=== PATIENT | female | born 1980 | race Caucasian/White ===

== ENCOUNTER 2017-12-17 13:26 | Emergency (ER) | payer OTHER ==
[2017-12-17] MEDS ORDERED: FLUORESCEIN SODIUM 0.6 MG/WRAP ONE (13:42)
[2017-12-17] MEDS ORDERED: TETRACAINE HCL 0.5% 2ML OPTH ONE (13:44)
[2017-12-17] MEDS ORDERED: TETANUS & DIPHTHERIA TOX,ADULT 0.5 ML VIAL ONE (13:45)
--- NOTE | 2017-12-17 13:53 | ER ---
Nurse's Notes [facility] Name: Zoe Marvin Age: 37 yrs Sex: Female : 1980 Arrival Date: 12/17/2017 Time: 13:32 Bed 23 Private MD: out of town, doctor Diagnosis: Injury of conjunctiva and corneal abrasion without foreign body, left eye Presentation: 12/17 13:34 Presenting complaint: Patient states: Left eye pain and burning since last night. hb Denies injury. Transition of care: patient was not received from another setting of care. Onset of symptoms was December 16, 2017. Risk Assessment: Do you want to hurt yourself or someone else? Patient reports no desire to harm self or others. Care prior to arrival: None. 13:34 Method Of Arrival: Ambulatory hb 13:34 Acuity: CASSIUS 4 hb 15:00 Initial Sepsis Screen: Does the patient meet any 2 criteria? No. Patient's initial tl3 sepsis screen is negative. Does the patient have a suspected source of infection? No. Patient's initial sepsis screen is negative. 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 - Social history:: Smoking status: Patient/guardian denies using tobacco. - Ebola Screening: : No symptoms or risks identified at this time. Screenin:51 Abuse screen: Denies threats or abuse. Nutritional screening: No deficits noted. tl3 Tuberculosis screening: No symptoms or risk factors identified. Fall Risk None identified. Assessment: 13:51 General: Appears uncomfortable, well groomed, well developed, well nourished, Behavior tl3 is calm, cooperative, appropriate for age. Pain: Complains of pain in left eye. Neuro: Level of Consciousness is awake, alert, obeys commands, Oriented to person, place, time, situation, Appropriate for age. Cardiovascular: No deficits noted. Patient's skin is warm and dry. Respiratory: Airway is patent Respiratory effort is even, unlabored, Respiratory pattern is regular, symmetrical. GI: No deficits noted. No signs and/or symptoms were reported involving the gastrointestinal system. : No deficits noted. No signs and/or symptoms were reported regarding the genitourinary system. 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 Derm: No deficits noted. No signs and/or symptoms reported regarding the dermatologic system. Musculoskeletal: No deficits noted. No signs and/or symptoms reported regarding the musculoskeletal system. Vital Signs: 13:34 BP 139 / 92; Pulse 104; Resp 16; Temp 98.2; Pulse Ox 100% on R/A; Weight 77.11 kg; hb Height 5 ft. 8 in. (172.72 cm); Pain 5/10; 14:25 BP 122 / 80; Pulse 94; Resp 18; Pulse Ox 100% ; tl3 13:34 Body Mass Index 25.85 (77.11 kg, 172.72 cm) hb Visual Acuity: 14:20 Left Eye Visual acuity 20/70, ; Right Eye Visual acuity 20/15, ; Both Eyes Visual tl3 acuity 20/15; With Lenses; ED Course: 13:32 Patient arrived in ED. mr 13:32 out of town, doctor is Private Physician. mr 13:34 Triage completed. hb 13:34 David Bowers, BLAISE is PHCP. pm1 13:34 Lance Long MD is Attending Physician. pm1 13:35 Arm band placed on right wrist. hb 13:36 Mary Alice Yusuf, MASHA is Primary Nurse. tl3 13:51 Patient has correct armband on for positive identification. Bed in low position. Call tl3 light in reach. Side rails up X 1. Adult w/ patient. 13:51 Assist provider with eye exam of left eye. using fluorescein stain, Performed by tl3 David Bowers NP Patient tolerated well. 15:00 Patient did not have IV access during this emergency room visit. tl3 Administered Medications: 13:54 Drug: Tetracaine Drops 0.5 % 1 drops Route: Ophthalmic; Site: left eye; tl3 14:04 Follow up: Response: No adverse reaction tl3 13:55 Drug: Tetanus-Diphtheria Toxoid Adult 0.5 ml {Ingredient Scaler: [employer] MD ([employer]). Exp: tl3 03/08/2020. Lot #: [id number]. } Route: IM; Site: right deltoid; 13:56 Follow up: Response: No adverse reaction tl3 13:58 Not Given (Physician Discretion; Preference for tobramycin): Gentamicin Drops 0.3 % 2 pm1 drops Ophthalmic once 14:04 Drug: Tylenol #3 (300 mg-30 mg) 1 tablet Route: PO; tl3 14:14 Follow up: Response: No adverse reaction; Medication administered at discharge. tl3 14:10 Not Given (Physician Discretion; Not available): Tobramycin Drops (0.3 %) 2 drops pm1 Ophthalmic once 14:12 Drug: Gentamicin Drops 0.3 % 2 drops Route: Ophthalmic; Site: left eye; tl3 14:14 Follow up: Response: Medication administered at discharge. tl3 Outcome: 13:52 Discharge ordered by MD. pm1 14:59 Discharged to home ambulatory. tl3 14:59 Condition: good 14:59 Discharge instructions given to patient, family, Instructed on discharge instructions, follow up and referral plans. medication usage, Demonstrated understanding of instructions, follow-up care, medications, Prescriptions given X 2. 15:01 Patient left the ED. tl3 Signatures: Yanely Steele ElissaDavid, SENIOR COLDFUSION DEVELOPER SENIOR COLDFUSION DEVELOPER pm1 Marilee Salazar, RN RN Mary Alice Yusuf RN RN tl3
--- NOTE | 2017-12-17 13:53 | EDPHYS ---
Physician Documentation [facility] Name: Zoe Marvin Age: 37 yrs Sex: Female : 1980 Arrival Date: 12/17/2017 Time: 13:32 Bed 23 Private MD: out of town, doctor ED Physician Lance Long HPI: 12/17 13:50 This 37 yrs old Female presents to ER via Ambulatory with complaints of Left pm1 Eye Pain. 13:50 The patient is experiencing foreign body sensation, pain, tearing, The patient pm1 sustained Unknown. to the left eye, caused by an unknown mechanism. Onset: The symptoms/episode began/occurred last night. Duration: the symptoms are intermittent. Aggravated by nothing. Alleviated by nothing. Associated signs and symptoms: Pertinent negatives: fever, headache, runny nose. Patient wears soft contacts. Severity of symptoms: in the emergency department the symptoms are worse. The patient has not experienced similar symptoms in the past. The patient has not recently seen a physician. 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 - Social history:: Smoking status: Patient/guardian denies using tobacco. - Ebola Screening: : No symptoms or risks identified at this time. ROS: 13:50 Constitutional: Negative for fever, chills, and weight loss. pm1 13:50 ENT: Negative for injury, pain, and discharge, Neck: Negative for injury, pain, and swelling, Cardiovascular: Negative for chest pain, palpitations, and edema, Respiratory: Negative for shortness of breath, cough, wheezing, and pleuritic chest pain, Abdomen/GI: Negative for abdominal pain, nausea, vomiting, diarrhea, and constipation, Back: Negative for injury and pain, MS/Extremity: Negative for injury and deformity, Skin: Negative for injury, rash, and discoloration, Neuro: Negative for headache, weakness, numbness, tingling, and seizure. 13:50 Eyes: Positive for foreign body sensation, pain, of the left eye. Exam: 13:50 Visual Acuity: I have reviewed the nursing documentation. pm1 13:50 Constitutional: This is a well developed, well nourished patient who is awake, alert, and in no acute distress. Head/Face: Normocephalic, atraumatic. 13:50 ENT: Nares patent. No nasal discharge, no septal abnormalities noted. Tympanic membranes are normal and external auditory canals are clear. Oropharynx with no redness, swelling, or masses, exudates, or evidence of obstruction, uvula midline. Mucous membranes moist. Neck: Trachea midline, no thyromegaly or masses palpated, and no cervical lymphadenopathy. Supple, full range of motion without nuchal rigidity, or vertebral point tenderness. No Meningismus. Chest/axilla: Normal chest wall appearance and motion. Nontender with no deformity. No lesions are appreciated. Cardiovascular: Regular rate and rhythm with a normal S1 and S2. No gallops, murmurs, or rubs. No pulse deficits. Respiratory: Lungs have equal breath sounds bilaterally, clear to auscultation and percussion. No rales, rhonchi or wheezes noted. No increased work of breathing, no retractions or nasal flaring. Abdomen/GI: Soft, non-tender, with normal bowel sounds. No distension or tympany. No guarding or rebound. No evidence of tenderness throughout. Back: No spinal tenderness. No costovertebral tenderness. Full range of motion. Skin: Warm, dry with normal turgor. Normal color with no rashes, no lesions, and no evidence of cellulitis. MS/ Extremity: Pulses equal, no cyanosis. Neurovascular intact. Full, normal range of motion. 13:50 Eyes: Periorbital structures: appear normal, Pupils: no acute changes, Extraocular movements: no acute changes, Conjunctiva: injected, in the left eye, Corneas: abrasion, that is small, approximately 2 mm(s), on the left, at 10 o'clock, foreign body, is not appreciated, on the left, a fluorescein strip employed to appreciate the findings, Sclera: no appreciated abnormality, no acute changes, Lids and lashes: appear normal, no acute changes. Vital Signs: 13:34 BP 139 / 92; Pulse 104; Resp 16; Temp 98.2; Pulse Ox 100% on R/A; Weight 77.11 kg; hb Height 5 ft. 8 in. (172.72 cm); Pain 5/10; 14:25 BP 122 / 80; Pulse 94; Resp 18; Pulse Ox 100% ; tl3 13:34 Body Mass Index 25.85 (77.11 kg, 172.72 cm) hb Visual Acuity: 14:20 Left Eye Visual acuity 20/70, ; Right Eye Visual acuity 20/15, ; Both Eyes Visual tl3 acuity 20/15; With Lenses; MDM: 13:37 Patient medically screened. pm1 13:51 Data reviewed: vital signs. Data interpreted: Pulse oximetry: on room air is 100 %. pm1 Interpretation: normal. Counseling: I had a detailed discussion with the patient and/or guardian regarding: the historical points, exam findings, and any diagnostic results supporting the discharge/admit diagnosis, the need for outpatient follow up, for definitive care, an opthalmologist, to return to the emergency department if symptoms worsen or persist or if there are any questions or concerns that arise at home. 12/17 13:42 Order name: Visual Acuity; Complete Time: 14:20 pm1 12/17 13:42 Order name: Eye Tray; Complete Time: 13:55 pm1 12/17 13:42 Order name: Fluoresene Opth strip; Complete Time: 13:55 pm1 Administered Medications: 13:54 Drug: Tetracaine Drops 0.5 % 1 drops Route: Ophthalmic; Site: left eye; tl3 14:04 Follow up: Response: No adverse reaction tl3 13:55 Drug: Tetanus-Diphtheria Toxoid Adult 0.5 ml {Alcoholism Worker: [employer] ([employer]). Exp: tl3 03/08/2020. Lot #: [id number]. } Route: IM; Site: right deltoid; 13:56 Follow up: Response: No adverse reaction tl3 13:58 Not Given (Physician Discretion; Preference for tobramycin): Gentamicin Drops 0.3 % 2 pm1 drops Ophthalmic once 14:04 Drug: Tylenol #3 (300 mg-30 mg) 1 tablet Route: PO; tl3 14:14 Follow up: Response: No adverse reaction; Medication administered at discharge. tl3 14:10 Not Given (Physician Discretion; Not available): Tobramycin Drops (0.3 %) 2 drops pm1 Ophthalmic once 14:12 Drug: Gentamicin Drops 0.3 % 2 drops Route: Ophthalmic; Site: left eye; tl3 14:14 Follow up: Response: Medication administered at discharge. tl3 Disposition: 12/18 14:07 Co-signature as Attending Physician, Lance Long MD I agree with the assessment and [facility] plan of care. Disposition: 12/17/17 13:52 Discharged to Home. Impression: Injury of conjunctiva and corneal abrasion without foreign body, left eye. - Condition is Stable. - Discharge Instructions: Corneal Abrasion. - Prescriptions for Tylenol- Codeine #3 300-30 mg Oral Tablet - take 2 tablet by ORAL route every 6 hours As needed; 30 tablet. tobramycin 0.3 % Ophthalmic drops - instill 2 drop by OPHTHALMIC route every 4 hours; 10 milliliter. - Medication Reconciliation Form, Thank You Letter, Antibiotic Education, Prescription Opioid Use form. - Follow up: Emergency Department; When: As needed; Reason: Worsening of condition. Follow up: Private Physician; When: 1 - 2 days; Reason: Recheck today's complaints, Continuance of care, Re-evaluation by your physician. - Problem is new. - Symptoms have improved. Signatures: Lance Long MD MD cha Marinas, Patrick, MASS SPECTROMETRY MANAGER MASS SPECTROMETRY MANAGER pm1 Marilee Salazar RN RN Mary Alice Yusuf RN RN tl3 Corrections: (The following items were deleted from the chart) 12/17 15:01 13:52 12/17/2017 13:52 Discharged to Home. Impression: Injury of conjunctiva and tl3 corneal abrasion without foreign body, left eye. Condition is Stable. Forms are Medication Reconciliation Form, Thank You Letter, Antibiotic Education, Prescription Opioid Use. Follow up: Emergency Department; When: As needed; Reason: Worsening of condition. Follow up: Private Physician; When: 1 - 2 days; Reason: Recheck today's complaints, Continuance of care, Re-evaluation by your physician. Problem is new. Symptoms have improved. pm1
[2017-12-17] MEDS ORDERED: GENTAMICIN 0.3% OPTH DROP 5ML ONE (14:01)
[2017-12-17] MEDS ORDERED: CODEINE 30MG/APAP 300MG TAB ONE (14:02)
== END 2017-12-17 15:01 | disposition home or self-care (01) ==
LOC: ER 13:26
DX: S05.02XA Injury of conjunctiva and corneal abrasion without foreign body, left eye, initial encounter (principal); X58.XXXA Exposure to other specified factors, initial encounter; Y93.9 Activity, unspecified; Y92.9 Unspecified place or not applicable; Y99.9 Unspecified external cause status; Z88.0 Allergy status to penicillin
CPT/HCPCS: 90714; 99283